=== PATIENT | female | born 2000 | race Caucasian/White ===

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

== ENCOUNTER 2021-06-08 17:49 | Emergency (ER) | payer BC, OTHER, SELFPAY ==
[2021-06-08] VITALS (36 sets, daily range): BP systolic 101–134; BP diastolic 67–90; PULSE 68–96; RESP 14–20; TEMP 36.7; O2SAT 95–100
--- NOTE | 2021-06-08 17:58 | ECG_ITS ---
Measurements Intervals [place] Rate: 79 P: 56 IN: 163 QRS: 54 QRSD: 92 T: 33 QT: 361 QTc: 416 Interpretive Statements SINUS RHYTHM WITH SINUS ARRHYTHMIA INCOMPLETE RIGHT BUNDLE BRANCH BLOCK BASELINE ARTIFACT- I, II, III, AVR, AVL, AVF, V3 BORDERLINE ECG Electronically Signed On 06-09-2021 7:05:34 CDT by Marcos Vora D.O.
[2021-06-08 18:56] LABS: Basophils Absolute Auto 0.1 K/mm3 (0.0-0.1); Basophils Percent Auto 0.6 % (0.2-1.2); Eosinophils Absolute Auto 0.2 K/mm3 (0-0.3); Eosinophils Percent Auto 1.8 % (0-4.4); Hematocrit 42.1 % (37.0-47.0); Hemoglobin 14.7 g/dL (12.0-15.0); Immature Granulocyte Absolute 0.01 K/mm3 (0.00-0.031); Immature Granulocyte Percent A 0.1 % (0-0.5); Lymphocytes Absolute Auto 2.47 K/mm3 (0.9-3.2); Lymphocytes Percent Auto 30.3 % (18.3-44.2); Mean Corpuscular HGB Conc 34.9 g/dl (32-36); Mean Corpuscular Hemoglobin 30.1 pg (26-34); Mean Corpuscular Volume 86.3 fl (80-100); Mean Platelet Volume 12.6 fl (7.4-10.4); Monocytes Absolute Auto 0.5 K/mm3 (0.1-0.6); Monocytes Percent Auto 6.4 % (2.6-8.5); Neutrophils Absolute Auto 4.9 K/mm3 (1.3-6.7); Neutrophils Percent Auto 60.8 % (45.5-73.1); Platelet Count Result 285 k/mm3 (150-375); Red Blood Count 4.88 M/mm3 (4.2-5.4); Red Cell Distribution Width 12.4 % (11.5-14.5); White Blood Count 8.1 K/mm3 (4.5-10.0)
[2021-06-08 19:07] LABS: Anion Gap 9 mmol/L (8-16); Blood Urea Nitrogen 16 mg/dL (8-21); Calcium 9.8 mg/dL (8.9-10.7); Carbon Dioxide 24 mmol/L (22-30); Chloride 105 mmol/L (98-107); Estimated CRCL calculation 101 ml/min; Estimated Glomerular Filt Rate > 60; Glucose 96 mg/dL (65-110); Potassium 3.3 mmol/L (3.4-5.0); Sodium 138 mmol/L (134-143)
[2021-06-08] MEDS: KETOROLAC 30 MG/ML VIAL (*BKC) IV PUSH (22:02)
[2021-06-08] MEDS: SODIUM CHLORIDE 0.9% IV 1,000 ML 999 ML IV CONT (22:03)
--- NOTE | 2021-06-08 23:11 | ED.GENADULT ---
HPI - General Adult General Chief complaint: Syncope Stated complaint: vag. bleeding Time Seen by Provider: 06/08/21 21:15 History of Present Illness HPI narrative: Patient is a 20-year-old female who presents the emergency department with chief complaint of syncopal episode. The patient reports that she was standing up felt lightheaded and briefly passed out. Patient states she has been having a heavy menstrual cycle this time and reports that she has had severe pelvic cramping. Patient states that she is on oral contraceptives and most likely not . Patient states that she is been going through about a pad or tampon about an hour and reports that she has had issues with irregular periods in the past. The patient states currently she feels much better. Related Data Allergies Allergy/AdvReac Type Severity Reaction Status Date / Time No Known Allergies Allergy Verified 06/08/21 20:54 Review of Systems Review of Systems: A 10 system review of systems was completed on the patient and is negative except for what is stated in the HPI. Nursing and ancillary documentation was reviewed. Exam Narrative: GENERAL: Well-appearing, well-nourished, and in no acute distress. HEAD: Normocephalic, atraumatic. EYES: PERRLA and EOMI. ENT: Nares clear, no rhinorrhea or epistaxis. Mucous membranes moist. NECK: Supple. CHEST: Clear to auscultation. No respiratory distress. HEART: Regular rate and rhythm. No murmur heard. Normal peripheral pulses. ABDOMEN: Soft, nontender, nondistended, normal active bowel sounds. EXTREMITIES: Normal range of motion. No edema. SKIN: Warm, dry, no rash. NEURO: No focal deficits. Alert and oriented x3. PSYCH: Normal mood and affect. Course Vital Signs Vital signs: Vital Signs Temperature 36.7 C 06/08/21 17:56 Pulse Rate 95 06/08/21 17:56 Respiratory Rate 16 06/08/21 17:56 Blood Pressure 134/86 06/08/21 17:56 Pulse Oximetry 100 06/08/21 17:56 Temperature 36.7 C 06/08/21 20:51 Pulse Rate 89 06/08/21 22:27 Respiratory Rate 17 06/08/21 22:21 Blood Pressure 118/75 06/08/21 22:21 Pulse Oximetry 95 06/08/21 22:21 Medical Decision Making Vital Signs Vital Signs: Vital Signs Temperature 36.7 C 06/08/21 17:56 Pulse Rate 95 06/08/21 17:56 Respiratory Rate 16 06/08/21 17:56 Blood Pressure 134/86 06/08/21 17:56 Pulse Oximetry 100 06/08/21 17:56 Temperature 36.7 C 06/08/21 20:51 Pulse Rate 89 06/08/21 22:27 Respiratory Rate 17 06/08/21 22:21 Blood Pressure 118/75 06/08/21 22:21 Pulse Oximetry 95 06/08/21 22:21 Lab Data Result diagrams: 06/08/21 18:11 06/08/21 18:11 Labs: Lab Results 06/08/21 06/08/21 Range/Units 18:11 18:11 WBC 8.1 (4.5-10.0) K/mm3 RBC 4.88 (4.2-5.4) M/mm3 Hgb 14.7 (12.0-15.0) g/dL Hct 42.1 (37.0-47.0) % MCV 86.3 (80-100) fl MCH 30.1 (26-34) pg MCHC 34.9 (32-36) g/dl RDW 12.4 (11.5-14.5) % Plt Count 285 (150-375) k/mm3 MPV 12.6 H (7.4-10.4) fl Immature Gran % (Auto) 0.1 (0-0.5) % Neut % (Auto) 60.8 (45.5-73.1) % Lymph % (Auto) 30.3 (18.3-44.2) % [place] % (Auto) 6.4 (2.6-8.5) % Eos % (Auto) 1.8 (0-4.4) % Baso % (Auto) 0.6 (0.2-1.2) % Lymph # (Auto) 2.47 (0.9-3.2) K/mm3 [place] # (Auto) 0.5 (0.1-0.6) K/mm3 Eos # (Auto) 0.2 (0-0.3) K/mm3 Baso # (Auto) 0.1 (0.0-0.1) K/mm3 Abs Immat Gran (auto) 0.01 (0.00-0.031) K/mm3 Absolute Neuts (auto) 4.9 (1.3-6.7) K/mm3 Absolute Nucleated RBC 0.0 (0.0-0.012) K/mm3 Nucleated RBC % 0.0 (0.0-0.2) % Sodium 138 (134-143) mmol/L Potassium 3.3 L (3.4-5.0) mmol/L Chloride 105 (98-107) mmol/L Carbon Dioxide 24 (22-30) mmol/L Anion Gap 9 (8-16) mmol/L BUN 16 (8-21) mg/dL Creatinine 0.60 L (0.7-1.0) mg/dL Estim Creat Clear Calc 101 ml/min Estimated GFR > 60 (59 - ) Glucose 96 (65-110) mg/dL Calcium 9.8
== END 2021-06-08 23:53 | disposition home or self-care (01) ==
PROVIDERS: General Practice; Emergency Provider Emergency Medicine; PCP Pediatrics Adolescent Medicine
DX: R55 Syncope and collapse (principal); N93.8 Other specified abnormal uterine and vaginal bleeding
CPT/HCPCS: 36415; 80048; 81025; 85025; 93005; 96361; 96374; 99284; J1885; J7030

== ENCOUNTER 2022-02-26 12:02 | Emergency (ER) | payer BC, OTHER, SELFPAY ==
[2022-02-26 12:09] VITALS: BP 118/78; PULSE 95; RESP 12; TEMP 37; O2SAT 100
--- NOTE | 2022-02-26 12:32 | ED.SKABFB ---
HPI - Skin/Abscess/Foreign Bdy General Chief complaint: Skin/Abscess/Foreign Body Stated complaint: RASH Time Seen by Provider: 02/26/22 12:22 Source: patient Mode of arrival: ambulatory Limitations: no limitations History of Present Illness HPI narrative: Patient presents today complaining of poison khadra that started 5 days ago to her right leg. It has since spread to her left leg, abdomen, back, and face. 4 days ago she was seen at a different urgent care and [place] and given steroid injection and started on a prednisone taper at 40mg x3 days, then down from there. States initially the rash started to improve after 1 day then worsened significantly after that. She was also given triamcinolone cream that she has used the whole to above, mostly on her face, and calamine lotion. Related Data Home Medications Medication Instructions Recorded Confirmed cetirizine 10 mg capsule (Zyrtec) 10 mg PO DAILY 02/26/22 02/26/22 prednisone 10 mg tablet 1 tablet PO QID 02/26/22 02/26/22 triamcinolone acetonide 0.1 % 1 applic topical BID 02/26/22 02/26/22 topical cream Allergies Allergy/AdvReac Type Severity Reaction Status Date / Time No Known Allergies Allergy Verified 02/26/22 12:11 Review of Systems Review of Systems: CONSTITUTIONAL: Denies body aches, fever, chills, or sweats. EYES: Denies visual changes, redness, or discharge. ENT: Denies rhinorrhea, congestion, sore throat, or otalgia. CARDIOVASCULAR: Denies chest pain, palpitations, or edema. RESPIRATORY: Denies cough or dyspnea. GASTROINTESTINAL: Denies abdominal pain, nausea, vomiting, or diarrhea. GENITOURINARY: Denies dysuria or hematuria. SKIN:+ Pruritic rash MUSCULOSKELETAL: Denies back pain, joint pain, or myalgia. NEUROLOGIC: Denies headache, numbness, tingling, or weakness. PSYCH: Denies depression or anxiety. Exam Narrative: GENERAL: Well-appearing, well-nourished, and in no acute distress. HEAD: Normocephalic, atraumatic. EYES: EOMI. No redness or drainage. Conjunctivae normal. ENT: Mucous membranes pink and moist. NECK: Normal AROM. CHEST: No respiratory distress. EXTREMITIES: Normal range of motion. No edema. SKIN: Warm, dry. Capillary refill normal. Normal skin turgor. Very large patches erythematous maculopapular rash to bilateral anterior upper legs, entire abdomen, bilateral shoulders and upper back, neck and bilateral cheeks NEURO: No focal deficits. Alert and oriented x3. Gait steady. PSYCH: Normal affect. No signs of depression or anxiety. Course Course Level of Care: Express Care Visit Vital Signs Vital signs: Vital Signs Temperature 98.6 F 02/26/22 12:09 Pulse Rate 95 02/26/22 12:09 Respiratory Rate 12 02/26/22 12:09 Blood Pressure 118/78 02/26/22 12:09 Pulse Oximetry 100 02/26/22 12:09 Oxygen Delivery Room Air 02/26/22 12:09 Temperature 98.6 F 02/26/22 12:09 Pulse Rate 95 02/26/22 12:09 Respiratory Rate 12 02/26/22 12:09 Blood Pressure 118/78 02/26/22 12:09 Pulse Oximetry 100 02/26/22 12:09 Oxygen Delivery Room Air 02/26/22 12:09 Reviewed MDM - Skin/Abscess/Foreign Bdy MDM Narrative Medical decision making narrative: At this time, I feel like patient needs an increased dose of prednisone and to taper down slowly over a longer period of time to get rid of this rash. There is no sign of bacterial infection, so patient does not need an antibiotic. Differential Diagnosis Differential diagnosis: Likely abscess of skin or subcutaneous tissue, urticaria, cellulitis, eczema, impetigo and contact dermatitis Critical Care Time Critical Care Time Critical Care Time: No Discharge Plan Discharge Clinical Impression: Poison khadra dermatitis Patient Disposition: Home, Self-Care Condition: Stable Instructions: Poison Khadra (ED) Additional Instructions: Please take the prednisone as directed. Continue the Zyrtec, or take Benadryl for an antihistamine. Do not apply the tria
== END 2022-02-26 12:49 | disposition home or self-care (01) ==
PROVIDERS: Emergency Provider Nurse Practitioner
DX: L23.7 Allergic contact dermatitis due to plants, except food (principal)
CPT/HCPCS: 99213; G0463